=== PATIENT | male | born 1985 | race Caucasian/White ===

== ENCOUNTER 2017-06-15 12:20 | Inpatient (IN) | payer OTHER ==
[~2017-06-15] VITALS: Ht 177.8 cm; Wt 64.9 kg
[2017-06-15 13:00] VITALS: BP 107/72; PULSE 94; RESP 18; TEMP 97.6
[2017-06-15] MEDS ORDERED: MAGNESIUM HYDROXIDE SUSP 30 ML CUP PO PRN (15:15)
[2017-06-15] MEDS ORDERED: LORazepam 2 MG/ML VIAL IM PRN (15:15)
[2017-06-15] MEDS ORDERED: ALUMINUM/MAGNESIUM/SIMETH 30 ML CUP PO PRN (15:15)
[2017-06-15] MEDS ORDERED: ACETAMINOPHEN 325 MG TAB PO PRN (15:15)
[2017-06-15] MEDS ORDERED: LORazepam 1 MG TAB PO PRN (15:15)
[2017-06-15 20:30] VITALS: BP 137/82; PULSE 66; RESP 17; TEMP 98.1; O2SAT 98
[2017-06-16 05:49] VITALS: BP 106/62; PULSE 61; RESP 16; TEMP 97.6; O2SAT 98
[2017-06-16] MEDS ORDERED: hydrOXYzine HCL 50 MG TAB PO PRN (09:15)
[2017-06-16] MEDS ORDERED: ACETAMINOPHEN 325 MG TAB PO PRN (09:15)
[2017-06-16] MEDS ORDERED: MAGNESIUM HYDROXIDE SUSP 30 ML CUP PO PRN (09:15)
[2017-06-16] MEDS ORDERED: diphenhydrAMINE HCL 50 MG CAP PO PRN (09:15)
[2017-06-16] MEDS ORDERED: ALUMINUM/MAGNESIUM/SIMETH 30 ML CUP PO PRN (09:15)
[2017-06-16] MEDS: NICOTINE 21 MG/24 HR PATCH T-DERMAL SCH (10:19)
--- NOTE | 2017-06-16 10:21 | HHI.HP ---
Provisional Diagnosis Admission Date Jun 15, 2017 at 12:52 [place] I. Bipolar disorder current episode mixed severe without psychosis F 31.63, drug- induced mood disorder F 19.94 Certification of Person's Competence To Provide Express and Informed Consent I have personally examined Keo Adamson , a person being served at [facility] on, Jun 16, 2017 09:54. Express and informed consent means consent voluntarily given in writing, by a competent person, after sufficient explanation and disclosure of the subject matter involved to enable the person to make a knowing and willful decision without any element of force, fraud, deceit, duress, or other form of constraint or coercion. This person is 18 years of age or older, is not now known to be incompetent to consent to treatment with a guardian advocate, and does not have a health care surrogate or proxy currently making medical treatment decisions. I have found this person to be one of the following: [] Competent to provide express and informed consent, as defined above, for voluntary admission to this facility and is competent to provide express and informed consent for treatment. He/she has the consistent capacity to make well reasoned, willful, and knowing decisions concerning his or her medical or mental health treatment. The person fully and consistently understands the purpose of the admission for examination/placement and is fully capable of personally exercising all rights assured [place] Incompetent to provide express and informed consent to voluntary admission, and this is incompetent to provide express and informed consent to treatment. The person must be transferred to involuntary status and a petition for a guardian advocate filed with the Circuit Court. [xxxx] Refusing to provide express and informed consent to voluntary admission but is competent to provide express and informed consent for treatment. The person must be discharged or transferred to involuntary status. Form shall be completed within 24 hours of a person's arrival at the receiving facility and filed in the clinical record of each person: 1. Admitted on a voluntary basis 2. Permitted to provide express and informed consent to his/her own treatment 3. Allowed to transfer from involuntary to voluntary status 4. Prior to permitting a person to consent to his or her own treatment after having been previously found incompetent to consent to treatment. History of Present Illness Capacity: Lacks Capacity (patient less capacity to sign for admission, patient has capacity to sign for medication) Psych Chief Complaint: patient manic with increased aggressive behavior and vague suicidal ideatio HPI Patient is a 32-year-old white male initially was brought to [facility] under [place] act signed by Nora Hernandez dated 06/14/17 at 2100 hrs. the document reviewed and essentially stating, acute sarah with suicidal ideation patient unable sleep, pressured speech, "anger outbursts, "almost her life," wants to hurt self. It appears patient lives with his of about 5 years was 3 years older than him. They have been sharing "mollies". His has been injecting mollies into him. It appears his went to nursing home a few months ago for violation of probation he went to visit family in [place] where is doing pretty well. His was discharged from nursing home within the past month he returned back to living with her they have been having a contentious relationship. Related to financial issues, the relationship, and also the patient's difficulty relating to his ex- was custody of their 10-year-old daughter. Patient has a past history of mood swings explosive temper. With episodes that appear manic in nature. With increased energy decreased need for sleep, racing thoughts, rapid pressured speech, poor task completion, risky behaviors. He also acknowledges episodes of depression the past with vague suicidal ideation. He also acknowledges some multiple drug abuse in the past. He denies legal issues were incarceration. He denies past physical or sexual abuse. Denies mental illness in his family. He is not working, has no income, neither does his , they've been living in various hotels. Patient does acknowledge past history of explosive temper. It appears he has some insight. He did mention the fact that he thinks he might be bipolar. We did discuss medications. We'll start patient on Tegretol 100 mg twice a day check a blood level after 3 days medication. This time I feel is still meets criteria for involuntary hospitalization thus I'll do first opinion request second opinion. Hopeless to be fairly short stay and then return of his family with follow-up perhaps through [place] act Review of Systems Constitutional: DENIES: Diaphoretic episodes, Fatigue, Fever, Weight gain, Weight loss, Chills, Dizziness, Change in appetite, Night Sweats Eyes: DENIES: Blurred vision, Diplopia, Eye inflammation, Eye pain, Vision loss , Photosensitivity, Double Vision Ears, nose, mouth, throat: DENIES: Tinnitus, Hearing loss, Vertigo, Nasal discharge, Oral lesions, Throat pain, Hoarseness, Ear Pain, Running Nose, Epistaxis, Sinus Pain, Toothache, Odynophagia Respiratory: DENIES: Apneas, Cough, Snoring, Wheezing, Hemoptysis, Sputum production, Shortness of breath Cardiovascular: DENIES: Chest pain, Palpitations, Syncope, Dyspnea on Exertion , PND, Lower Extremity Edema, Orthopnea, Claudication Gastrointestinal: DENIES: Abdominal pain, Black stools, Bloody stools, Constipation, Diarrhea, Nausea, Vomiting, Difficulty Swallowing, Anorexia Genitourinary: DENIES: Sexual dysfunction, Urinary frequency, Urinary incontinence, Urgency, Hematuria, Dysuria, Nocturia, Penile Discharge, Testicular Pain, Testicular Swelling Musculoskeletal: DENIES: Joint pain, Muscle aches, Stiffness, Joint Swelling, Back pain, Neck pain Integumentary: DENIES: Abnormal pigmentation, Nail changes, Pruritus, Rash Hematologic/lymphatic: DENIES: Bruising, Lymphadenopathy Neurologic: DENIES: Abnormal gait, Headache, Localized weakness, Paresthesias, Seizures, Speech Problems, Tremor, Poor Balance Psychiatric: COMPLAINS OF: Mood changes, Depression, Agitation, Homicidal Ideation Past Psych History Psychological trauma history Deny Violence risk - others (6 mos) Has been aggressive towards Violence risk - self (6 mos) Vague suicidal ideation Substance Abuse History Drugs/Alcohol past 12 months Has been doing IVDA mollies Past Family Social History Coded Allergies: No Known Allergies (Verified Allergy, Unknown, 06/15/17) Past Medical History Patient medically cleared [facility] Current Medications Medications (Trade) Dose Ordered Sig/Holly Route Start Time Stop Time Status Last Admin (Ativan) 1 mg Q6H PRN PO 06/15/17 15:15 (Ativan Inj) 1 mg Q6H PRN IM 06/15/17 15:15 (Tylenol) 650 mg Q4H PRN PO 06/15/17 15:15 (Milk Of Magnesia Liq) 30 ml DAILY PRN PO 06/15/17 15:15 (Mag-Al Plus Susp Liq) 30 ml Q6H PRN PO 06/15/17 15:15 (Benadryl) 50 mg HS PRN PO 06/16/17 09:15 (Habitrol 21 Mg Patch.24 Hr) 1 patch DAILY T-DERMAL 06/17/17 09:00 (Atarax) 50 mg Q6H PRN PO 06/16/17 09:15 (TEGretol CHEW) 100 mg BID PO 06/16/17 09:30 Miscellaneous Information 1 HS T-DERMAL 06/16/17 21:00 Family Psych History Denies mental health issues and family Social History Patient is a second , contentious relationship, she with history of alcohol problems and also substance abuse Patient's Strengths (min. 2) Patient verbal irritable axis health care Physical Exam Patient screen medically cleared at [facility]. At present time patient sitting quietly in his room he is in no acute distress, no respiratory distress, no complaints of abdominal pain. Patient moving all 4 extremities without difficulty no abnormal motor movements noted, he is somewhat fidgety Vital Signs Vital Signs Date Time Temp Pulse Resp B/P (MAP) Pulse Ox O2 Delivery O2 Flow Rate FiO2 06/16/17 05:49 97.6 61 16 106/62 (77) 98 Mental Status Examination Appearance: Disheveled Consciousness: Alert Orientation: x4 Motor Activity: Normal gait Speech: Unremarkable, Pressured, Rapid Language: Adequate Fund of Knowledge: Adequate Attention and Concentration: Adequate Memory: Unremarkable Mood: Appropriate Affect: Other (increase range and intensity) Thought Process & Associations: Tangential (mildly) Thought Content: Appropriate Hallucination Type: None Delusion Type: None Suicidal Ideation: Yes (denies at this time) Suicidal Plan: No Suicidal Intention: No Homicidal Ideation: No Homicidal Plan: No Homicidal Intention: No Insight: Fair Judgment: Impulsive Assessment & Plan Problem List: (1) Drug-induced mood disorder ICD Codes: F19.94 - Other psychoactive substance use, unspecified with psychoactive substance-induced mood disorder (2) Bipolar disorder, curr episode mixed, severe, w/o psychotic features ICD Codes: F31.63 - Bipolar disorder, current episode mixed, severe, without psychotic features Assessment & Plan Estimated LOS 5-7: days patient meets criteria for involuntary inpatient psychiatric hospitalization I'll do first opinion request second opinion. I feel his capacity sign for medication. So patient on Tegretol 100 mg twice a day check a blood level after 3 days. Hopeless. Fairly short stay him can stabilize sinus medications referral to [facility] outpatient , and return home with his Discharge Planning Anticipated returning home with his Request HC Surrog/Guard Advoc?: No Jose Tinajero MD Jun 16, 2017 10:21
[2017-06-16 11:02] LABS: ANION GAP 6 MEQ/L (5-15); BLOOD UREA NITROGEN 8 MG/DL (7-18); CHLORIDE 104 MEQ/L (98-107); GLOMERULAR FILTRATION RATE 104 ML/MIN (>89); POTASSIUM 4.2 MEQ/L (3.5-5.1); SODIUM (NA) 139 MEQ/L (136-145)
[2017-06-16 11:06] LABS: HDL CHOLESTEROL 49.8 MG/DL (40.0-60.0); LDL CHOLESTEROL 55 MG/DL (0-99)
[2017-06-16 17:04] VITALS: BP 112/62; PULSE 61; RESP 17; TEMP 97; O2SAT 99
[2017-06-16] MEDS: REMOVE OLD NICODERM (NICOTINE) PATCH T-DERMAL SCH (21:00)
[2017-06-17 05:29] VITALS: BP 109/63; PULSE 61; RESP 18; TEMP 98.5; O2SAT 97
[2017-06-17 09:48] LABS: HEMOGLOBIN A1a 1.2 %; HEMOGLOBIN A1b 0.8 %; HEMOGLOBIN Ao 85.3 %; HEMOGLOBIN F 1.1 %; HEMOGLOBIN LA1C 1.9 %; HEMOGLOBIN P3 3.5 %
--- NOTE | 2017-06-17 13:08 | PD.PSY.CON ---
Provisional Diagnosis Admission Date Jun 15, 2017 at 12:52 [place] I. Bipolar disorder current episode mixed severe without psychosis F 31.63, drug- induced mood disorder F 19.94 History of Present Illness Service Psychiatry Consult Requested By Psychiatry Reason for Consult 2nd opinion Primary Care Physician No Primary Care Physician HPI Pt seen and discussed with staff. Chart reviewed. Pt was [place] [facility] [place] alleging suicidal ideations and mood lability. He admitted to abusing mollies with . He has been isolating to room but did come out to do therapeutic activity. He is very superficial in interview and states that "I've never felt better!' Affect is expansive and mood is euphoric. He admits that he did have suicidal ideations with different plans but states now that he is just "stressed out because of different people." and symptoms have resolved and he is ready for discharge. He is disheveled. He reports that he is tolerating medication without side effects and feels mood is better today. Past Family Social History Coded Allergies: No Known Allergies (Verified Allergy, Unknown, 06/15/17) Past Medical History hx of substance abuse Current Medications Medications (Trade) Dose Ordered Sig/Holly Route Start Time Stop Time Status Last Admin (Ativan) 1 mg Q6H PRN PO 06/15/17 15:15 (Ativan Inj) 1 mg Q6H PRN IM 06/15/17 15:15 (Tylenol) 650 mg Q4H PRN PO 06/15/17 15:15 (Milk Of Magnesia Liq) 30 ml DAILY PRN PO 06/15/17 15:15 (Mag-Al Plus Susp Liq) 30 ml Q6H PRN PO 06/15/17 15:15 (Benadryl) 50 mg HS PRN PO 06/16/17 09:15 (Habitrol 21 Mg Patch.24 Hr) 1 patch DAILY T-DERMAL 06/17/17 09:00 (Atarax) 50 mg Q6H PRN PO 06/16/17 09:15 (TEGretol CHEW) 100 mg BID PO 06/16/17 09:30 06/17/17 11:00 Miscellaneous Information 1 HS T-DERMAL 06/16/17 21:00 Social History . recently got out of alf and is having medical problems Patient's Strengths (min. 2) Patient verbal irritable axis health care Physical Exam Vital Signs Vital Signs Date Time Temp Pulse Resp B/P (MAP) Pulse Ox O2 Delivery O2 Flow Rate FiO2 06/17/17 05:29 98.5 61 18 109/63 (78) 97 Mental Status Examination Appearance: Disheveled Consciousness: Alert Orientation: x4 Motor Activity: Normal gait Speech: Unremarkable, Pressured, Rapid Language: Adequate Fund of Knowledge: Adequate Attention and Concentration: Adequate Memory: Unremarkable Mood: Appropriate, Other (elevated, mild euphoria) Affect: Other (expansive) Thought Process & Associations: Tangential (mildly) Thought Content: Appropriate Hallucination Type: None Delusion Type: None Suicidal Ideation: Yes (denies at this time) Suicidal Plan: No Suicidal Intention: No Homicidal Ideation: No Homicidal Plan: No Homicidal Intention: No Insight: Fair Judgment: Impulsive Assessment & Plan Problem List: (1) Drug-induced mood disorder ICD Codes: F19.94 - Other psychoactive substance use, unspecified with psychoactive substance-induced mood disorder (2) Bipolar disorder, curr episode mixed, severe, w/o psychotic features ICD Codes: F31.63 - Bipolar disorder, current episode mixed, severe, without psychotic features Assessment & Plan I agree pt meets criteria for involuntary hospitalization due to recent SI and mood lability. 2nd opinion paperwork completed. Continue current tx plan. Estimated LOS: days Request HC Surrog/Guard Advoc?: Beata Malhotra MD Jun 17, 2017 13:08
[2017-06-17 17:19] VITALS: BP_SYST 113; PULSE 86; RESP 17; TEMP 98.3; O2SAT 99
[2017-06-17] MEDS: REMOVE OLD NICODERM (NICOTINE) PATCH T-DERMAL SCH (21:00)
[2017-06-18 06:00] VITALS: BP 121/76; PULSE 56; RESP 18; TEMP 97.6; O2SAT 98
[2017-06-18] MEDS: NICOTINE 21 MG/24 HR PATCH T-DERMAL SCH (08:40)
--- NOTE | 2017-06-18 09:57 | PD.TTN ---
Patient Problems 1. Discharge planning 2. Medication compliance 3. Knowledge deficit 4. Lack of coping skills Progress Toward Goals Provider Present: Dr. Reg Tinajero Provider Input: Patient is a new admission and will be under observation for behavioral and medication compliance. Nurse(s) Input: At present, patient does not show any behavioral issues on the unit. Patient has been noted to attending to ADLs and has been compliant with medications. Patient denies any suicidal ideations currently. Psychiatric Counselors Present: HANH Stanley Psych Therapist Input: Patient is cooperative and calm, patient is oriented and has some insight upon his admission. Patient is denying suicidial ideations and has been speaking with his . Patient states that he feels ready to return home. Patient is observed to be interactive with peers on the unit. Group Spec/RT/OT/PINA Present: Conner Ramirez OT Group Spec/RT/OT/PINA Input: Patient is new to the unit, he has not attend any groups as of yet but has shown some interest in groups. Ana Cristina SanchesCorky Jun 18, 2017 09:57
[2017-06-18] MEDS ORDERED: CARB100C PO (13:08)
--- NOTE | 2017-06-18 13:20 | HHI.DS ---
Psychiatry Discharge Summary Inpatient Psychiatric care?: Yes Advance Directive: No Reason Not Provided: Due to Patient Condition Mental Health AdvanceDirective: No Health Care Proxy: No Admission Admission Date Jun 15, 2017 at 12:52 Admission Diagnosis: (1) Bipolar disorder, curr episode mixed, severe, w/o psychotic features ICD Code: F31.63 - Bipolar disorder, current episode mixed, severe, without psychotic features Brief History Pt seen and discussed with staff. Chart reviewed. Pt was admitted to [facility] under a BA alleging suicidal ideations and mood lability. He admitted to abusing mollies with . He has been isolating to room but did come out to do therapeutic activity. He is very superficial in interview and states that "I've never felt better!' Affect is expansive and mood is euphoric. He admits that he did have suicidal ideations with different plans but states now that he is just "stressed out because of different people." and symptoms have resolved and he is ready for discharge. He is disheveled. He reports that he is tolerating medication without side effects and feels mood is better today. Tobacco Use In Past 30 Days: No Tobacco Past 30 Days Alcohol Use: Never Hospital Course Patient's hospital course was uneventful family's been compliant with his medications. Patient seen today with nurse Juliette and medical student [place]. He is alert oriented 3. He denies suicidality homicidality voices or visions. Says she's been contact with his . He still shows some rapid pressured speech and some mild elevation of mood though it is less than on admission. We discussed his need for absolute abstinence upon discharge she is willing to do that. Then willing to follow-up with Psychiatric act. Thus patient be discharged today. Rx for a Tegretol chewable 100 mg #60 one twice a day with no refill. Patient is scheduled to get a Tegretol blood level tomorrow though he wishes to be discharged today. At this time he has reached maximum benefit of this hospitalization. Thus I would recommend he get a Tegretol blood level prior to his visit with Psychiatric act. Results Blood Pressure 121 / 76 Vital Signs Date Time Temp Pulse Resp B/P (MAP) Pulse Ox O2 Delivery O2 Flow Rate FiO2 06/18/17 06:00 97.6 56 18 121/76 (91) 98 Laboratory Tests Test 06/16/17 10:24 Laboratory Results Test 06/16/17 10:24 Cholesterol Level 126 MG/DL (120-200) HDL Cholesterol 49.8 MG/DL (40.0-60.0) Hemoglobin A1c 5.7 % (4.3-6.0) LDL Cholesterol 55 MG/DL (0-99) Triglycerides Level 105 MG/DL (42-150) Summary of Procedures None done Pending results at discharge: No Medications # of Antipsychotic meds at D/C: 0 Approp Antipsych med options 1 - Minimum of three failed multiple trials of monotherapy. 2 - Documented plan to taper to monotherapy due to previous use of multiple meds OR cross-taper in progress at D/C. 3 - Documentation of augmentation of Clozapine. 4 - Justification other than those listed in allowable values 1-3, document here : Discharge Discharge Date: Jun 18, 2017 Discharge Diagnosis: (1) Bipolar disorder, curr episode mixed, severe, w/o psychotic features Diagnosis: Principal ICD Code: F31.63 - Bipolar disorder, current episode mixed, severe, without psychotic features (2) Drug-induced mood disorder Diagnosis: Secondary ICD Code: F19.94 - Other psychoactive substance use, unspecified with psychoactive substance-induced mood disorder Pt Condition on Discharge: Stable Discharge Disposition: Discharge Home Discharge Instructions Diet Instructions: As Tolerated, No Restrictions Activities you can perform: Regular-No Restrictions Scheduled Appointment: [facility] Discharge Time > 30 minutes Mental Status Examination Appearance: Disheveled Consciousness: Alert Orientation: x4 Motor Activity: Normal gait Speech: Unremarkable, Pressured, Rapid Language: Adequate Fund of Knowledge: Adequate Attention and Concentration: Adequate Memory: Unremarkable Mood: Appropriate, Other (elevated, mild euphoria) Affect: Other (expansive) Thought Process & Associations: Tangential (mildly) Thought Content: Appropriate Hallucination Type: None Delusion Type: None Suicidal Ideation: Yes (denies at this time) Suicidal Plan: No Suicidal Intention: No Homicidal Ideation: No Homicidal Plan: No Homicidal Intention: No Insight: Fair Judgment: Impulsive Discharge/Advance Care Plan Health Problems: (1) Drug-induced mood disorder (2) Bipolar disorder, curr episode mixed, severe, w/o psychotic features Goals to promote your health * To prevent worsening of your condition and complications * To maintain your health at the optimal level Directions to meet your goals Take your medications as prescribed Follow your dietary instruction Follow activity as directed Keep your appointments as scheduled Take your immunizations and boosters as scheduled If your symptoms worsen call your PCP, if no PCP go to Urgent Care Center or Emergency Room For 19/02 questions related to your inpatient stay or results of tests pending at discharge, please contact Dr. Jose Tinajero at Smoking is Dangerous to Your Health. Avoid second hand smoking Joes Tinajero MD Jun 18, 2017 13:20
== END 2017-06-18 14:45 | disposition home or self-care (01) | DRG 885 ==
LOC: EDSTATUS 12:48 → H260 12:52
PROVIDERS: ADMIT Psychiatry & Neurology Psychiatry; ATTEND Psychiatry & Neurology Psychiatry
DX: F31.63 Bipolar disorder, current episode mixed, severe, without psychotic features (principal); R45.851 Suicidal ideations; F19.14 Other psychoactive substance abuse with psychoactive substance-induced mood disorder; Z59.9 Problem related to housing and economic circumstances, unspecified; Z63.0 Problems in relationship with spouse or partner
CPT/HCPCS: 80048; 80061; 83036